=== PATIENT | female | born 1990 | race Caucasian/White ===

== ENCOUNTER → 2018-01-07 | Outpatient (CLI) | payer SELFPAY ==
[~2018-01-07] MED LIST: AMOX1XR PO; DOCU100 PO; IBUP800 PO; RXOXYACE PO; Verotin-Gr Cap1 EACH PO
== END ==
LOC: LAB SHORT 15:06 → LAB 15:06
PROVIDERS: Registered Nurse Community Health
DX: Z12.4 Encounter for screening for malignant neoplasm of cervix (principal)
CPT/HCPCS: G0123

== ENCOUNTER 2019-08-15 10:16 | Day surgery (SDC) | payer OTHER ==
[~2019-08-15 10:16] MED LIST changes: +NEXPLANON68 MG SC
--- NOTE | 2019-08-15 12:03 | NUR ---
08/15/19 1203 Ashtyn Koch RN UPDATED PT REGARDING THE DELAY IN HER CASE DUE TO PREVIOUS PROCEDURE GOING LONG. PT STATES SHE IS COMFORTABLE. WARM BLANKETS OFFERRED. CALL LIGHT IN REACH.
--- NOTE | 2019-08-15 14:34 | NUR ---
08/15/19 1434 Laura Soriano PT C/O 12/02 ABD CRAMPING. PT DENIES PAIN MEDICATION INTERVENTION AT THIS TIME. PT TOLERATING PO INTAKE WELL. PT DENIES NAUSEA AT THIS TIME. PT FRIENDLY, CONVERSATING WITH FRIEND AT CHAIRSIDE.
== END 2019-08-15 15:08 | disposition home or self-care (01) ==
LOC: ORSCSDS 10:16
PROVIDERS: Obstetrics & Gynecology
PROC: 0UT74ZZ Resection of Bilateral Fallopian Tubes, Percutaneous Endoscopic Approach (ICD-10-PCS; principal; 2019-08-15 11:30)
PROC: 0XP70YZ Removal of Other Device from Left Upper Extremity, Open Approach (ICD-10-PCS; principal; 2019-08-15 11:30)
DX: Z30.2 Encounter for sterilization (principal); N80.3 Endometriosis of pelvic peritoneum; Z45.89 Encounter for adjustment and management of other implanted devices; Z87.891 Personal history of nicotine dependence
CPT/HCPCS: 88302; J0171; J0690; J1100; J1885; J2250; J2405; J2704; J2710; J3010; J7120